=== PATIENT | male | born 1940 ===

== ENCOUNTER 2017-07-15 00:48 | Outpatient (CLI) | payer SELFPAY ==
[2017-07-15 12:24] LABS: HEMOGLOBIN A1C 5.8 % (4.5-6.2)
[2017-07-15 12:40] LABS: CHOL/HDL RATIO 3.92 (0.00-4.99)
== END 2017-07-15 23:59 | disposition home or self-care (01) ==
LOC: DIABETIC 00:48 → HW WOMENS 23:59
DX: Z00.00 Encounter for general adult medical examination without abnormal findings (principal)
CPT/HCPCS: 36415